=== PATIENT | female | born 1980 | race Two or more races ===

== ENCOUNTER 2024-06-16 18:49 | Emergency (ER) | payer MEDICAID, SELFPAY ==
[2024-06-16 19:24] VITALS: BP 126/78; PULSE 64; RESP 18; TEMP 36.8; O2SAT 98
--- NOTE | 2024-06-16 19:24 | EDNOTE_ITS ---
ED Headache RME/HPI General Chief Complaint: Headache Stated Complaint: HEADACHE/SINUS PROBLEMS x 7 DAYS Time Seen by Provider: 06/16/24 19:13 Arrival date/time: 06/16/24 18:49 RME / HPI RME / HPI Narrative: This section includes all my notes and documentations, including HPI, PE, and ED course. Celestino Thomson MD HPI: 43yo female accompanied by her daughter presents to the ED for a chief complaint of a left-sided headache x 1 week. Patient states she's had a severe headache and left facial pain for the last week. No fever or neck pain or stiffness. She denies any nausea, vomiting or any other associated symptoms. No other complaints reported. ROS: All negative except as documented in HPI. Physical Exam: General: Alert and oriented. No acute distress when remaining still. Eyes: Conjunctivae and lids clear. EOMI. PERRL. ENT: No nasal congestion. Pharynx normal. TM normal bilaterally. Neck: Supple. Heart: RRR. Lungs: No respiratory distress. Good air movement. No rhonchi, wheezing, rales. Abdomen: Soft and nontender. Legs: No clubbing, cyanosis, edema. Skin: Warm and dry. Neuro: Alert and oriented X 3. Cranial nerves II to XII grossly normal. No peripheral motor deficits. I reviewed all diagnostic test results. My review of the CT report is no acute findings. At this point, diagnoses include headache, exact cause unclear. Treatment here included two Tylenol #3. She started to feel better. Recommended more outpatient workup. Based on my best medical judgment, made decision no further evaluation or treatment indicated at this time. Patient understands and agrees to the discharge instructions customized and printed, see below. Discharge Instructions from Dr. Thomson printed for you: 1. After evaluation, exact cause of her headache was not determined. But there is no emergency with life-threatening conditions, such as stroke or brain tumor. 2. Tylenol/ibuprofen as needed. 3. See a private doctor on 06/17/2024 for recheck and further care. Ask for help with more care, such as MRI of the brain and referral to see neurologist. 4. Seek immediate medical care with worsening or with any concerns. Celestino Thomson MD Related Data Home Medications ?Medication ?Instructions ?Recorded ?Confirmed No Known Home Medications 07/16/21 07/16/21 Allergies Allergy/AdvReac Type Severity Reaction Status Date / Time No Known Allergies Allergy Verified 06/16/24 18:53 Review of Systems Review of Systems Systems Reviewed: All systems reviewed, normal except as documented Past Medical History Past Medical History NEUROLOGIC: Negative Neurological Disorders CARDIAC: Negative Cardiac Disorders or Congestive Heart Failure RESPIRATORY: Negative Chronic Obstructive Pulmonary Disease (COPD) GASTROINTESTINAL: Negative Gastrointestinal Disorders GENITOURINARY: Negative Genitourinary Disorders or Renal Disease MUSCULOSKELETAL: Negative Musculoskeletal Disorders ENDOCRINE: Negative Endocrine Disorders, Diabetes Mellitus Type 1 or Diabetes Mellitus Type 2 HEMATOLOGIC: Negative Blood Disorders OTHER HISTORY: Negative Autoimmune Disease, Organ Transplant, VRSA or Clostridium Difficile Family History FAMILY HISTORY: Negative Family Cardiac Disorders Surgical History SURGICAL: Negative Endocrine Surgery, Ear Surgery, Neurologic Surgery or Organ Transplant Social History SMOKING STATUS: Never smoker ED Exam Narrative Physical exam: As noted in HPI. Course Quality Measures none Orders Category Date Time Status CT head/brain wo con Stat Exams 06/16/24 19:27 Completed ACETAMINOPHEN w/COD 300-30 [Tylenol w/Cod #3] Med 06/16/24 19:26 Discontinued 2 tab PO X1 ONE Vital Signs Vital signs: Vital Signs Temperature 98.3 F 06/16/24 19:24 Pulse Rate 64 06/16/24 19:24 Respiratory Rate 18 06/16/24 19:24 Blood Pressure 126/78 06/16/24 19:24 Pulse Oximetry (%) 98 06/16/24 19:24 Oxygen Delivery Method Room Air 06/16/24 19:24 Headache MDM Narrative MDM Narrative:: Scribe Attestation: 06/16/24 - Angela Mena am scribing for and in the presence of Dr. Thomson. Patient data External records reviewed:: [facility] previous records (Per chart review, patient was seen here on 07/16/21 for left arm paresthesia.) Clinical information provided by:: patient Social determinants that could affect healthcare access:: none Patient has the following chronic illnesses:: none How is presenting disease/condition affected by chronic disease/condition?: no chronic disease Evaluation data The following diagnostics were reviewed and interpreted by me:: radiology exam(s) Lab and/or radiology exams considered but not ordered:: none Interpretation Summary: Headache of unclear etiology Medications / Prescriptions Medications or Prescriptions considered but not ordered:: none Medication administrations:: Medication Administration History Discontinued Medications Acetaminophen/Codeine Phosphate (Acetaminophen W/Cod 300-30 Tablet) 2 tab PO X1 ONE Stop: 06/16/24 19:27 Last Admin: 06/16/24 20:14 Dose: 2 tab Documented By: MAURICIO two Tylenol #3 Consultations Consultation(s) initiated? (list below): No Diagnosis Differential diagnosis headache: migraine, tension headache, subarachnoid hemorrhage and sinusitis Most likely diagnosis given after review of the tests above:: headache of unclear etiology Admission Indicated Admission indicated?: not indicated Explain why admission is indicated or not indicated:: Admission criteria not met Admission Request Was there a request for admission?: No Disposition Plan Disposition Plan: Discharge Discharge Attestation Discharge Attestation: The patient and all family members were given an opportunity to ask questions and understood the discharge instructions. Discharge instructions specifically effects, indications for sooner follow up or return to the emergency department, and the expected course of current diagnosis. Patient condition: Stable Discharge Plan Plan Patient Disposition: HOME (Self Care) Prescriptions/Referrals Prescriptions/Med Rec: No Action No Known Home Medications Referrals: No Primary/Family,Physician [Primary Care Provider] - In 1 week Problem List Clinical Impression: Headache Patient/Caregiver Discharge Instructions Discharge Activity: activity as tolerated Education Materials: ED Headache, Tension, ED Headache, Migraine, Classic Additional Instructions: Discharge Instructions from Dr. Thomson printed for you: 1. After evaluation, exact cause of her headache was not determined. But there is no emergency with life-threatening conditions, such as stroke or brain tumor. 2. Tylenol/ibuprofen as needed. 3. See a private doctor on 06/17/2024 for recheck and further care. Ask for help with more care, such as MRI of the brain and referral to see neurologist. 4. Seek immediate medical care with worsening or with any concerns. Print Language: Barb[place] Stand Alone Forms: [facility] Award Info., Patient Portal Info Letter
--- NOTE | 2024-06-16 19:27 | XR_ITS ---
K} breathing movement Examination: CT brain head without contrast. 2-D sagittal coronal reconstructions Date and time of exam:June 16, 2024 2049 hrs. Indications: Onset severe headache today CTDI: vol (mGy):48.9 DLP: (mGycm):945 Technique: Multiple CT axial sections of the brain have been obtained, 5 mm slice thickness. Contrast has not been administered. 2-D sagittal, coronal reconstructions have been obtained Low dose protocols were performed. One or more of the following dose reduction techniques were used; automated exposure control, adjustment of the mA and/or KV according to patient size, use of iterative reconstruction technique. Findings: No significant ventricular enlargement. Intra-axial or extra-axial hemorrhage density is not seen. No mass effect or midline shift Basal cisterns are not remarkable. Fourth ventricle is midline. Cranial vault intact. Impression: Negative for acute hemorrhage, mass effect or midline shift
[2024-06-16] MEDS: ACETAMINOPHEN w/COD 300-30 TABLET 2 TAB PO (20:14)
[2024-06-16 22:09] VITALS: BP 122/72; PULSE 72; RESP 18; TEMP 36.8; O2SAT 98
== END 2024-06-16 22:10 | disposition home or self-care (01) ==
PROVIDERS: Emergency Provider Emergency Medicine
DX: R51.9 Headache, unspecified (principal)
CPT/HCPCS: 70450; 99284; A9270